=== PATIENT | female | born 1990 | race Caucasian/White ===

== ENCOUNTER 2025-01-05 15:56 | Outpatient (CLI) | payer OTHER, SELFPAY | END 2025-01-05 15:57 | disposition home or self-care (01) | PROVIDERS: PCP Nurse Practitioner Family; Visit Provider Nurse Practitioner Family | DX: G43.909 Migraine, unspecified, not intractable, without status migrainosus (principal) | CPT/HCPCS: 70551 ==

== ENCOUNTER → 2025-09-27 10:19 | Outpatient (CLI) | payer OTHER, SELFPAY ==
--- NOTE | ~2025-09-27 | XR_ITS ---
EXAMINATION: XR ankle LT min 3V DATE: 09/27/2025 10:48 INDICATION: Pain, left ankle, no mention of trauma. TECHNIQUE: 4 views of the left ankle were obtained. COMPARISON: None. FINDINGS: Questionable, transversely oriented hairline fracture of the lateral malleolus. There is no widening of ankle mortise. Articular surface of the dome of the talus is smooth. Soft tissues are unremarkable. IMPRESSION: 1. Questionable transversely oriented hairline fracture of the lateral malleolus. Please correlate with clinical findings. A repeat x-rays suggested after a few days to reevaluate. Hairline lucency. Reviewed, dictated and finalized at location T. NTAMINATION WORKER IMPRESSION: 1. Questionable transversely oriented hairline fracture of the lateral malleolu s. Please correlate with clinical findings. A repeat x-rays suggested after a f ew days to reevaluate. Hairline lucency.
--- OUTSIDE RECORDS SUMMARY | 2025-09-27 12:09 | XMS_ITS | Clinical Summary ---
Author Organization [facility] Address [address] [place] [address] Care Team Providers Care Home Health Care Case Manager Name Role Phone Vonda Begum MD Primary Care Provider [phone] Source Comments [facility],non-owned Affiliates and Associated Physician Practices is amultiple site organization consisting of ambulatory clinics and hospital sitesin [place], [place], [place] and [place]. This disclosure is being madepursuant to the Care Everywhere program and may not contain all information available regarding this patient. Last updated 18.[facility] Allergies Active Allergy Reactions Criticality Noted Date Comments Sulfa Drugs Rash Medium 08/02/2014 Medications * Be aware that medications may not be up to date on this document. Alwaysverify current medications with the patient. citalopram (CELEXA) 40 MG tablet Take 1 (one) tablet by mouth 1 Active Vit-Fe Fumarate-FA ( PLUS) 27-1 MG tablet Take 1 (one) tablet by mouth Active clindamycin (Cleocin) 1 % lotion Apply to affected area 2 times daily 60 mL 5 3 Active Additional Information Patient not taking.Reported on 08/13/2024 chlorhexidine gluconate (Hibiclens) 4 % solution Apply to affected area once daily 120 mL 4 4 Active Additional Information Patient not taking.Reported on 08/13/2024 cephalexin (Keflex) 500 MG capsule Take 1 (one) capsule by mouth 2 times daily For 2 months 60 capsule 1 4 Active Additional Information Patient not taking.Reported on 08/13/2024 SUMAtriptan (Imitrex) 50 MG tablet Take 1 (one) tablet by mouth as needed 4 Active clindamycin (Cleocin) 1 % lotion Apply to affected area 2 times daily X 2 months prn facial rash 60 mL 5 4 Active betamethasone valerate (Valisone) 0.1 % lotion Apply to affected area 2 times daily X 2-3 weeks prn for scalp rash 60 mL 5 4 Active Active Problems No known active problems Immunizations Immunization Administration Dates Next Due Covid Pfizer primary monoval ent 12+ yr 0.3mL Purple cap 02/02/2021,01/12/2021 Social History Tobacco Use Types Packs/Day Years Used Date Smoking Tobacco: Never Smokeless Tobacco: Never Tobacco Cessation:Counseling Given: Not Answered Comments Unknown Sex and Gender Information Value Date Recorded Sex Assigned at Not on file Legal Sex Female 6:01 AM CDT Gender Identity Not on file Sexual Orientation Not on file Last Filed Vital Signs Vital Sign Reading Time Taken Comments Blood Pressure 112/82 12/05/2023 11:49 AM JUNIOR COPYWRITER Pulse 64 05/02/2023 9:27 AM CDT Temperature - - Respiratory Rate - - Oxygen Saturation - - Inhaled Oxygen Concentration - - Weight 83.6 kg (184 lb 6.4 oz) 12/05/2023 11:49 AM JUNIOR COPYWRITER Height 170.2 cm (5' 7) 05/02/2023 9:27 AM CDT Body Mass Index 28.88 05/02/2023 9:27 AM CDT Plan of Treatment Health Maintenance Due Date Last Done Comments HIV SCREENING 2006 DTAP/TDAP/TD VACCINES (1 - Tdap) 2010 HEPATITIS B VACCINE (1 of 3 - 19+ 3-dose series) 2010 HPV VACCINE (1 - 3-dose SCDM series) 2018 PAP with HPV 2021 DEPRESSION SCREENING 11/04/2024 Cervical Cancer Screening 05/01/2025 PAP SMEAR 05/01/2025 05/01/2022, 11/05, 12/02/2018, Additional history exists COVID-19 VACCINE ( season) 2025 09/08/2021, 02/02/2021, 01/12/2021 INFLUENZA VACCINE (#1) 2025 , 07/27/2020, 12/02/2018 ZOSTER VACCINE (1 of 2) 2041 HEPATITIS C SCREENING Completed 09/10/2022 HIB VACCINE Aged Out No longer eligi ble based on patient's age to complete this topic MENINGOCOCCAL (Group B) VACCINE SHARED DECISION-MAKING Aged Out No longer eligible based on patient's age to complete this topic MENINGOCOCCAL GROUPS A/C/Y/W VACCINE Aged Out No longer eligible based on patient's age to complete this topic PNEUMOCOCCAL VACCINE Aged Out No long er eligible based on patient's age to complete this topic Procedures Procedure Name Priority Date/Time Associated Diagnosis Comments PAP THINPREP (WI) Routine 12/02/2018 8:0 0 AM JUNIOR COPYWRITER from Last 3 Months or Most Recently Relevant to Health Maintenance Results * PAP THINPREP (WI) (12/02/2018 8:00 AM JUNIOR COPYWRITER) Credit Collections Rep Report Cervical CASE: [id number] PATIENT: CHERRI TRUJILLO Referring Physician: FRANCHESCA TELLEZ MD Signing Pathologist: Jg ROJO([facility] Fred Spivey Signout Date: 12/08/2018 Specimen Source: Cervical MICA SPREADER CYTOLOGY REPORT Source: A. ThinPrep Pap Test Cervical; Endocervical Clinical History: HPV Reflex SPECIMEN ADEQUACY: Satisfactory for evaluation. Transformation zone component is present. INTERPRETATION: Negative for intraepithelial lesion or malignancy (NILM). Cervical cytology is a screening test with limited sensitivity. It is not a diagnostic procedure and should not be used as the sole means to detect cervical cancer, especially in patients with symptoms or an abnormal cervix. Regular screening is critical for cancer prevention. Cervical cytology tests are primarily effective for the diagnosis/preventio n of squamous cell carcinoma, not adenocarcinoma or other malignancies. Initial evaluation performed by Kely Mcgraw CT(ASCP) Electronically signed 12/06/2018 11:41:19AM Final Diagnosis performed by Fred ROJO(ASCP) Electronically signed 12/08/2018 11:04:01AM [facility] 12/02/2018 8:00 AM JUNIOR COPYWRITER 12/02/2018 us Historical Provider LAB - BODY FLUID ORDERABL ES Final Result Performing Organization Address City/State/[facility] Co de Phone Number [facility] [address] [address] from Last 3 Months or Most Recently Relevant to Health Maintenance Insurance [employer] AETNA Care Teams Home Health Care Case Manager Relationship Specialty Start Date End Date Vonda Begum MD [address] [place] [phone] PCP - General Internal Medicine 05/02/23
--- OUTSIDE RECORDS SUMMARY | 2025-09-27 12:09 | XMS_ITS | Encounter Summary ---
Author Organization [facility] Address [address] [place] [place] [address] Care Team Providers Care Laborer [employer] Name Role Phone Vonda Begum MD Primary Care Provider [phone] Encounter Details Date Type Department Care Team (Latest Contact Info) Description 05/31/2023 Lab Requisition [facility] - Lab [address] [address] Jeromy Hutchison MD [address] [place] [id number] Calculus of gallbladder without cholecystitis without obstruction Social History Tobacco Use Types Packs/Day Years Used Date Smoking Tobacco: Never Smokeless Tobacco: Never Comments Unknown Sex and Gender Information Value Date Recorded Sex Assigned at Not on file Legal Sex Female 6:01 AM CDT Gender Identity Not on file Sexual Orientation Not on file documented as of this encounter Plan of Treatment Not on file documented as of this encounter Procedures Procedure Name Priority Date/Time Associated Diagnosis Comments BIOPSY TISSUE PANEL Routine 05/31/2023 4:05 PM CDT Calculus of gallbladder without cholecystitis without obstruction documented in this encounter Results * BIOPSY TISSUE PANEL (05/31/2023 4:05 PM CDT) Case Report Surgical Pathology Report Case: [id number] Authorizing Provider: Jeromy Hutchison MD Collected: 05/31/2023 04:05 PM Ordering Location: [facility] Received: 06/03/2023 09:42 AM [place] - Lab [address] [place] [address] Pathologist: Gene Peterson MD Specimen: Gallbladder 06/04/2023 9:15 AM CDT [facility] Final Diagnosis GALLBLADDER, CHOLECYSTECTOMY: CHOLELITHIASIS WITH CHOLESTEROLOSIS. 06/04/2023 9:15 AM CDT [facility] at 0915 CDT Clinical History Cholelithiasis 06/04/2023 9:15 AM CDT [facility] Microscopic Description Histologic sections are examined and the findings are incorporated into the final diagnosis. 06/04/2023 9:15 AM CDT [facility] Gross Description Specimen 1, gallbladder, in formalin is an intact gallbladder, 3.2 cm in diameter and 7.5 cm long. The serosa is bile-stained and smooth. The wall is thin and pliable the gallbladder contains viscid dark green bile and 5 green mulberry shaped stones, 0.3 to 0.6 cm. The mucosa is deeply bile-stained, trabeculated with gold flecking. The cystic duct is inked black. Security Architect gallbladder sections are submitted in cassette 1A. Miesha Lucero 06/03/2023 3:06 PM 06/04/2023 9:15 AM CDT [facility] Pathology/Cytolo gy ENTIRE GALLBLADDER / Unknown 05/31/2023 4:05 PM CDT 06/03/2023 9:42 AM CDT Jeromy Chu MD LAB - PATHOLOGY/CYTOLOGY O RDERABLES Final Result [facility] [address] documented in this encounter Visit Diagnoses Diagnosis Calculus of gallbladder without cholecystitis without obstruction Calculus of gallbladder without mention of cholecystitis or obstruction documented in this encounter Care Teams Laborer Marine [employer] Relationship Specialty Start Date End Date Vonda Begum MD [address] [place] [phone] PCP - General Internal Medicine 05/02/23 documented as of this encounter
== END ==
LOC: EXPTRAD 10:26
PROVIDERS: PCP Nurse Practitioner Family; Visit Provider Nurse Practitioner Family
DX: M25.572 Pain in left ankle and joints of left foot (principal)
CPT/HCPCS: 73610